=== PATIENT | female | born 1975 | race Caucasian/White ===

== ENCOUNTER 2025-06-21 10:26 | Day surgery (SDC) | payer BC ==
[2025-06-20 11:13] VITALS: BMI 32.4
[2025-06-21] MEDS ORDERED: Heparin 5,000 UNITS/ML VIAL ONE (11:20)
[2025-06-21] MEDS ORDERED: Bupivacaine 0.25% HCL 30 ML VIAL ONE (11:39)
[2025-06-21] MEDS ORDERED: Lidocaine 1% (PF) 30 ML VIAL ONE (11:40)
[2025-06-21] MEDS ORDERED: Lidocaine 1% PF 5 ML VIAL ONE (11:41)
[2025-06-21] MEDS ORDERED: Rocuronium Bromide 10 MG/ML (10ML VIAL) ONE (11:41)
[2025-06-21] MEDS ORDERED: PROPOFOL 20 ML ONE (11:41)
[2025-06-21] MEDS ORDERED: fentaNYL PF 100 MCG/2 ML SYRINGE ONE ×2 (11:41→14:32)
[2025-06-21] MEDS ORDERED: Scopolamine 1 mg/72 hour Patch ONE (11:58)
[2025-06-21] MEDS ORDERED: Famotidine/PF 20 mg/2ml Vial ONE (11:58)
[2025-06-21] MEDS ORDERED: CEFAZOLIN 2 GM VIAL ONE (12:05)
[2025-06-21] MEDS ORDERED: Ketorolac Tromethamine 30 MG (1 mL) VIAL ONE (12:31)
[2025-06-21] MEDS ORDERED: Ondansetron PF 4 MG/2 ML Vial ONE (12:31)
[2025-06-21] MEDS ORDERED: Glycopyrrolate 0.2 MG/ML 5 ML SYRINGE ONE (13:29)
[2025-06-21] MEDS ORDERED: PHENYLEPHRINE-NS 100 MCG/ML 10 ML SYRINGE ONE ×2 (13:29→15:29)
[2025-06-21] MEDS ORDERED: MINERAL OIL/WHITE PETROLATUM 3.5 GM TUBE ONE (15:38)
[2025-06-21] MEDS ORDERED: CEFAZOLIN 1 GM VIAL ONE (15:48)
[2025-06-21] MEDS ORDERED: SUGAMMADEX SODIUM 200 MG/2 ML VIAL ONE (16:43)
[2025-06-21] MEDS ORDERED: HYDROcodone/Acetaminophen 5/325 mg Tablet ONE (18:34)
== END 2025-06-21 20:22 | disposition home or self-care (01) ==
LOC: SDC 10:26
PROVIDERS: ATTEND Plastic Surgery
PROC: 0HBV0ZZ Excision of Bilateral Breast, Open Approach (ICD-10-PCS; principal; 2025-06-21)
DX: N62 Hypertrophy of breast (principal); N60.12 Diffuse cystic mastopathy of left breast; N60.11 Diffuse cystic mastopathy of right breast; N60.21 Fibroadenosis of right breast; N60.91 Unspecified benign mammary dysplasia of right breast; Z90.49 Acquired absence of other specified parts of digestive tract; Z98.890 Other specified postprocedural states
CPT/HCPCS: 19318; C9756; 88305; J0169; J0665; J0690; J1100; J1308; J1580; J1644; J1885; J2405; J2704; J3010; J3373; Q0162